=== PATIENT | female | born 1985 | race African-American/Black ===

== ENCOUNTER 2016-08-03 10:35 | Outpatient (CLI) | payer BC ==
[~2016-08-03] VITALS: Ht 160 cm; Wt 129.3 kg
[~2016-08-03 10:35] MED LIST: BIRTH CONTROL PILL; CELEXA40 MG PO; FLEXERIL5 MG PO; MOBIC7.5 MG PO; MOTRIN600 MG PO; Motrin PO; PROZAC40 MG PO; celeXA PO
[2016-08-03 12:31] VITALS: BP 108/80
== END 2016-08-03 13:47 | disposition home or self-care (01) ==
LOC: LDRP-OP 10:35 → EME 10:35 → EDSTATUS 12:04 → 2WEST 12:06
DX: Z03.79 Encounter for other suspected maternal and fetal conditions ruled out (principal); O09.292 Supervision of pregnancy with other poor reproductive or obstetric history, second trimester; Z3A.24 24 weeks gestation of pregnancy
CPT/HCPCS: 59025; 99281; 99284; G0378

== ENCOUNTER 2016-11-18 17:59 | Outpatient (CLI) | payer BC ==
[~2016-11-18] VITALS: Ht 160 cm; Wt 140.0 kg
[2016-11-18 18:31] VITALS: BP 127/76
[2016-11-18 20:12] VITALS: BP 123/65
[2016-11-18] MEDS ORDERED: PRENATAL 19 CH1 EAC1 PO (20:19)
[2016-11-18 20:29] LABS: EOSINOPHIL (%) 0.7 % (0-5); EOSINOPHIL COUNT 0.1 K/uL (0-0.3); IMMATURE GRANULOCYTE (%) 0.4 % (0.0-0.7); LYMPHOCYTE COUNT 3.7 K/uL (1.0-2.8); MCH 31.6 PG (29.0-34.0); MCHC 33.5 G/DL (30.0-36.0); MCV 94.2 FL (83-99); MEAN PLAT.VOLUME 10.1 uM^3 (9.5-12.4); MONOCYTE COUNT 0.7 K/uL (0-0.8); NEUTROPHIL (%) 56.8 % (45-76); PLATELET COUNT 202 K/uL (156-360); RBC DIS.WIDTH-CV 13.7 % (11.8-14.6); RBC DIS.WIDTH-SD 46.8 % (39-53); RED BLOOD COUNT 3.61 M/uL (3.80-5.20); WHITE BLOOD COUNT 10.6 K/uL (4.1-10.2)
[2016-11-19 00:18] VITALS: BP 134/87
[2016-11-19 01:54] VITALS: BP 123/65
[2016-11-19 04:07] VITALS: BP 132/68
[2016-11-19 05:27] VITALS: BP 130/69
[2016-11-19 06:47] VITALS: BP 136/77
== END 2016-11-19 08:20 | disposition home or self-care (01) ==
LOC: LDRP-OP 17:59 → 2WEST 18:00 → LDRP-OP 12-19 13:53
PROVIDERS: Nurse Practitioner
DX: O47.1 False labor at or after 37 completed weeks of gestation (principal); O99.213 Obesity complicating pregnancy, third trimester; Z3A.40 40 weeks gestation of pregnancy; O99.343 Other mental disorders complicating pregnancy, third trimester; F32.89 Other specified depressive episodes
CPT/HCPCS: 59025; 85025; G0378

== ENCOUNTER 2016-11-27 16:57 | Inpatient (IN) | payer BC ==
[~2016-11-27] VITALS: Ht 160 cm; Wt 133.8 kg
[2016-11-27] VITALS (8 sets, daily range): BP systolic 108–129; BP diastolic 53–80
[~2016-11-27 16:57] MED LIST changes: +PRENATAL 19 CH1 EAC1 PO
[2016-11-27 18:23] LABS: EOSINOPHIL (%) 0.7 % (0-5); EOSINOPHIL COUNT 0.1 K/uL (0-0.3); HEMATOCRIT 34.6 % (36.0-46.0); IMMATURE GRANULOCYTE (%) 0.4 % (0.0-0.7); INSTRUMENT ABS NEUTROPHIL CT 4.9 K/uL; LYMPHOCYTE COUNT 3.4 K/uL (1.0-2.8); MCH 31.8 PG (29.0-34.0); MCHC 33.8 G/DL (30.0-36.0); MEAN PLAT.VOLUME 9.8 uM^3 (9.5-12.4); MONOCYTE (%) 7.3 % (3-12); MONOCYTE COUNT 0.7 K/uL (0-0.8); NEUTROPHIL (%) 54.1 % (45-76); NEUTROPHIL COUNT 4.9 K/uL (1.8-6.4); PLATELET COUNT 183 K/uL (156-360); RBC DIS.WIDTH-CV 13.6 % (11.8-14.6); RBC DIS.WIDTH-SD 47.4 % (39-53); RED BLOOD COUNT 3.68 M/uL (3.80-5.20); WHITE BLOOD COUNT 9.1 K/uL (4.1-10.2)
[2016-11-28] VITALS (22 sets, daily range): BP systolic 117–163; BP diastolic 65–98
[2016-11-28] MEDS ORDERED: IBUPROFEN800 MG PO (10:59)
[2016-11-29 07:29] VITALS: BP 129/72
[2016-11-29 15:20] VITALS: BP 130/78
[2016-11-29 23:32] VITALS: BP 126/80
[2016-11-30 07:45] VITALS: BP 132/85
== END 2016-11-30 10:55 | disposition home or self-care (01) | DRG 775 ==
LOC: LDRP-OP 16:57 → 2WEST 16:58 → LDRP-OP 12-20 08:47
PROVIDERS: Advanced Practice Midwife
PROC: 3E0P7GC Introduction of Other Therapeutic Substance into Female Reproductive, Via Natural or Artificial Opening (ICD-10-PCS; 2016-11-27)
PROC: 10E0XZZ Delivery of Products of Conception, External Approach (ICD-10-PCS; principal; 2016-11-28)
DX: O48.0 Post-term pregnancy (principal); O99.214 Obesity complicating childbirth; E66.01 Morbid (severe) obesity due to excess calories; O99.344 Other mental disorders complicating childbirth; F31.9 Bipolar disorder, unspecified; O99.284 Endocrine, nutritional and metabolic diseases complicating childbirth; E78.5 Hyperlipidemia, unspecified; O99.02 Anemia complicating childbirth; D64.9 Anemia, unspecified; Z3A.41 41 weeks gestation of pregnancy; Z37.0 Single live birth; Z68.42 Body mass index [BMI] 45.0-49.9, adult
CPT/HCPCS: 85025; G0378; J0595; J7120